=== PATIENT | female | born 1955 | race Caucasian/White ===

== ENCOUNTER 2019-01-29 14:13 | Inpatient (IN) | payer OTHER ==
[~2019-01-29] VITALS: Ht 165.1 cm; Wt 100.8 kg
[2019-01-29] MEDS ORDERED: SODIUM CHLORIDE FLUSH 10ML SYR IVF ONE (15:00)
[2019-01-29] MEDS ORDERED: CEFOTETAN PMX 2GM/50ML 50 ML IV ONE (15:00)
[2019-01-29] MEDS ORDERED: SODIUM CHLORIDE 0.9% 1,000ML IVBOLUS ONE (15:00)
--- NOTE | 2019-01-29 15:15 | NUR ---
PT TO ED FOR ABD PAIN SINCE MONDAY. VSS. IV ESTABLISHED ON AIR TALENT. LABS AND BC DRAWN. EKG COMPLETE. IV ABX AND IVF INFUSING.
[2019-01-29 15:18] LABS: BASOPHILS % (AUTO) 0 % (0-1); EOSINOPHILS % (AUTO) 0 % (1-7); LYMPHOCYTES # (AUTO) 0.29 x10^3/uL (1-3.4); LYMPHOCYTES % (AUTO) 5 % (22-44); MD NO; MEAN CORPUSCULAR HEMOGLOBIN 27.7 pg (27.0-34.8); MEAN CORPUSCULAR HGB CONC 32.9 g/dL (32.4-35.8); MEAN CORPUSCULAR VOLUME 84.4 fL (80-100); MEAN PLATELET VOLUME 8.6 fL (7.4-10.4); MONOCYTES # (AUTO) 0.23 x10^3/uL (0.2-0.8); MONOCYTES % (AUTO) 4 % (2-9); NEUTROPHILS # (AUTO) 5.74 x10^3/uL (1.8-6.8); NEUTROPHILS % (AUTO) 92 % (42-75); PLATELET COUNT 246 x10^3/uL (130-400); RED BLOOD COUNT 4.96 x10^6/uL (3.82-5.3); RED CELL DISTRIBUTION WIDTH 15.2 % (9.6-15.2)
[2019-01-29 15:26] LABS: INTERNATIONAL NORMALIZED RATIO 1.09 (0.93-1.1); PROTHROMBIN TIME 11.4 Seconds (9.6-11.5)
[2019-01-29 15:28] LABS: ALANINE AMINOTRANSFERASE 44 U/L (12-78); ALBUMIN 3.4 g/dL (3.4-5.0); ANION GAP 10 mmol/L (5-15); CALCIUM 9.1 mg/dL (8.5-10.1); CHLORIDE 93 mmol/L (98-107); CREATININE 1.09 mg/dL (0.55-1.02)
[2019-01-29 15:30] LABS: ALKALINE PHOSPHATASE 81 U/L (45-117); BILIRUBIN,TOTAL 1.4 mg/dL (0.2-1.0); TOTAL PROTEIN 8.2 g/dL (6.4-8.2)
[2019-01-29] MEDS ORDERED: LEVO200T PO (15:37)
--- NOTE | 2019-01-29 15:38 | NUR ---
PT RESTING IN ROOM. VSS. NO NEEDS EXPRESSED. AWAITING OR.
[2019-01-29] MEDS ORDERED: BUPIVACAINE/PF-EPI 0.5% 1:200K ONE (15:47)
[2019-01-29] MEDS ORDERED: FENTANYL PF 100 MCG/2ML ONE (15:50)
[2019-01-29] MEDS ORDERED: PHENYLEPHRINE 10 MG/ML ONE (16:15)
[2019-01-29] MEDS ORDERED: SCOPOLAMINE PATCH, 1.5MG PATCH.TD72 TD PRN (17:00)
[2019-01-29] MEDS ORDERED: FENTANYL PF 100 MCG/2ML IV PRN (17:00)
[2019-01-29] MEDS ORDERED: ONDANSETRON 2MG/ML, 2ML IV PRN ×2 (17:00→19:00)
[2019-01-29] MEDS ORDERED: ACETAMINOPHEN 325 MG TABLET PO PRN (17:00)
[2019-01-29] MEDS ORDERED: MIDAZOLAM 1 MG/ML, 2ML IV PRN (17:00)
[2019-01-29] MEDS ORDERED: METOPROLOL 1 MG/ML, 5ML IV PRN (17:00)
[2019-01-29] MEDS ORDERED: ALBUTEROL/IPRATROPIUM 2.5MG/0.5MG, 3 ML NPPB PRN (17:00)
[2019-01-29] MEDS ORDERED: OXYcodone 5 MG/5 ML ORAL.SOL UDC PO PRN (17:00)
[2019-01-29] MEDS ORDERED: hydrALAzine 20 MG/ML, 1ML IV PRN (17:00)
[2019-01-29] MEDS ORDERED: PROMETHAZINE 25 MG/ML, 1ML IV PRN (17:00)
[2019-01-29] MEDS ORDERED: HYDROmorphone 2 MG/ML, 1ML IVPush PRN (17:00)
[2019-01-29] MEDS ORDERED: DIAZEPAM 5 MG/ML, 2ML IVPush PRN (17:00)
[2019-01-29] MEDS ORDERED: SUCCINYLCHOLINE 20 MG/ML, 10ML ONE (17:03)
[2019-01-29] MEDS ORDERED: DEXAMETHASONE 4 MG/ML, 1ML ONE (17:03)
[2019-01-29] MEDS ORDERED: ROCURONIUM 10MG/ML,5ML ONE (17:03)
[2019-01-29] MEDS ORDERED: ONDANSETRON 2MG/ML, 2ML ONE (17:03)
[2019-01-29] MEDS ORDERED: PROPOFOL 10 MG/ML, 20ML ONE (17:03)
[2019-01-29] MEDS ORDERED: NEOSTIGMINE 1 MG/ML, 10ML ONE (17:03)
[2019-01-29] MEDS ORDERED: GLYCOPYRROLATE 0.2MG/1ML, 5ML ONE (17:03)
[2019-01-29] MEDS ORDERED: CEFAZOLIN 1,000 MG ONE (17:03)
[2019-01-29 18:30] VITALS: BP 108/65
[2019-01-29] MEDS ORDERED: HYDROcodone/APAP 5/325 TABLET PO PRN (19:00)
[2019-01-29] MEDS ORDERED: morphine SULFATE 10 MG/ML, 1ML IV PRN (19:00)
[2019-01-29] MEDS: SODIUM CHLORIDE 0.9% 1,000 ML IV SCH (19:49)
[2019-01-29] MEDS: PIPERACILLIN/TAZO/PMX 3.375GM 50 ML IV SCH (19:49)
[2019-01-29 23:35] VITALS: BP 109/65
[2019-01-30] MEDS: PIPERACILLIN/TAZO/PMX 3.375GM 50 ML IV SCH ×4 (02:22→20:12)
[2019-01-30 04:51] VITALS: BP 100/62
[2019-01-30] MEDS: SODIUM CHLORIDE 0.9% 1,000 ML IV SCH ×2 (05:04→14:00)
[2019-01-30 06:10] LABS: BASOPHILS % (AUTO) 0 % (0-1); EOSINOPHILS % (AUTO) 0 % (1-7); LYMPHOCYTES # (AUTO) 0.38 x10^3/uL (1-3.4); LYMPHOCYTES % (AUTO) 5 % (22-44); MD NO; MEAN CORPUSCULAR HEMOGLOBIN 27.7 pg (27.0-34.8); MEAN CORPUSCULAR HGB CONC 32.1 g/dL (32.4-35.8); MEAN CORPUSCULAR VOLUME 86.2 fL (80-100); MEAN PLATELET VOLUME 9.2 fL (7.4-10.4); MONOCYTES # (AUTO) 0.51 x10^3/uL (0.2-0.8); MONOCYTES % (AUTO) 7 % (2-9); NEUTROPHILS # (AUTO) 6.08 x10^3/uL (1.8-6.8); NEUTROPHILS % (AUTO) 87 % (42-75); PLATELET COUNT 181 x10^3/uL (130-400); RED BLOOD COUNT 4.06 x10^6/uL (3.82-5.3); RED CELL DISTRIBUTION WIDTH 15.1 % (9.6-15.2)
[2019-01-30 06:14] LABS: ALBUMIN 2.6 g/dL (3.4-5.0); ANION GAP 7 mmol/L (5-15); CALCIUM 8.4 mg/dL (8.5-10.1); CHLORIDE 101 mmol/L (98-107)
[2019-01-30 07:20] VITALS: BP 91/54
[2019-01-30] MEDS: ENOXAPARIN 40 MG/0.4 ML SQ SCH (09:16)
[2019-01-30 10:59] VITALS: BP 127/66
[2019-01-30] MEDS ORDERED: ACETAMINOPHEN 325 MG TABLET ONE (12:16)
[2019-01-30] MEDS ORDERED: ACETAMINOPHEN 325 MG TABLET PO PRN (12:30)
[2019-01-30 12:50] VITALS: BP 118/67
[2019-01-30] MEDS: SODIUM CHLORIDE FLUSH 10ML SYR IVF SCH (20:12)
[2019-01-30 20:23] VITALS: BP 125/71
[2019-01-31 00:54] VITALS: BP 129/77
[2019-01-31] MEDS: PIPERACILLIN/TAZO/PMX 3.375GM 50 ML IV SCH ×4 (02:03→20:32)
[2019-01-31 07:05] VITALS: BP 124/85
[2019-01-31 09:12] LABS: ANION GAP 9 mmol/L (5-15); CALCIUM 8.5 mg/dL (8.5-10.1); CHLORIDE 92 mmol/L (98-107)
[2019-01-31 09:34] LABS: BASOPHILS % (AUTO) 0 % (0-1); EOSINOPHILS # (AUTO) 0.06 x10^3/uL (0-0.4); EOSINOPHILS % (AUTO) 1 % (1-7); LYMPHOCYTES # (AUTO) 0.55 x10^3/uL (1-3.4); LYMPHOCYTES % (AUTO) 6 % (22-44); MD NO; MEAN CORPUSCULAR HEMOGLOBIN 27.9 pg (27.0-34.8); MEAN CORPUSCULAR HGB CONC 32.2 g/dL (32.4-35.8); MEAN CORPUSCULAR VOLUME 86.6 fL (80-100); MEAN PLATELET VOLUME 8.5 fL (7.4-10.4); MONOCYTES # (AUTO) 0.33 x10^3/uL (0.2-0.8); MONOCYTES % (AUTO) 4 % (2-9); NEUTROPHILS # (AUTO) 8.27 x10^3/uL (1.8-6.8); NEUTROPHILS % (AUTO) 90 % (42-75); PLATELET COUNT 229 x10^3/uL (130-400); RED CELL DISTRIBUTION WIDTH 14.4 % (9.6-15.2)
[2019-01-31] MEDS: ENOXAPARIN 40 MG/0.4 ML SQ SCH (10:05)
[2019-01-31] MEDS: SODIUM CHLORIDE FLUSH 10ML SYR IVF SCH (10:05)
[2019-01-31 13:08] LABS: HCT (SEDRATE) 35.5 % (34.6-47.8)
[2019-01-31 14:58] VITALS: BP 123/78
[2019-01-31 19:07] VITALS: BP 133/77
[2019-02-01 01:52] VITALS: BP 133/79
[2019-02-01] MEDS: SODIUM CHLORIDE FLUSH 10ML SYR IVF SCH ×3 (03:05→22:06)
[2019-02-01] MEDS: PIPERACILLIN/TAZO/PMX 3.375GM 50 ML IV SCH ×2 (03:05→08:40)
[2019-02-01 04:58] LABS: CLOSTRIDIUM DIFFICILE ANTIGEN NEGATIVE; CLOSTRIDIUM DIFFICILE TOXIN NEGATIVE (Negative)
[2019-02-01 07:40] VITALS: BP 142/82
[2019-02-01] MEDS: ENOXAPARIN 40 MG/0.4 ML SQ SCH (08:40)
[2019-02-01] MEDS: PIPERACILLIN/TAZO/PMX 4.5GM 100 ML IV SCH ×2 (14:08→22:06)
[2019-02-01 16:24] VITALS: BP 130/80
[2019-02-01 19:01] VITALS: BP 117/76
[2019-02-02 01:07] VITALS: BP 130/75
[2019-02-02] MEDS: PIPERACILLIN/TAZO/PMX 4.5GM 100 ML IV SCH (06:22)
[2019-02-02 08:49] VITALS: BP 133/91
[2019-02-02] MEDS: SODIUM CHLORIDE FLUSH 10ML SYR IVF SCH ×2 (09:30→21:02)
[2019-02-02] MEDS: ENOXAPARIN 40 MG/0.4 ML SQ SCH (10:14)
[2019-02-02 13:58] VITALS: BP 149/92
[2019-02-02] MEDS: LEVOFLOXACIN 750 MG TABLET PO SCH (13:58)
[2019-02-02] MEDS: metroNIDAZOLE 500 MG TABLET PO SCH ×2 (13:58→21:01)
[2019-02-02 21:53] VITALS: BP 142/86
[2019-02-03 01:04] VITALS: BP 147/88
[2019-02-03] MEDS: metroNIDAZOLE 500 MG TABLET PO SCH ×2 (05:05→12:29)
[2019-02-03 07:23] VITALS: BP 145/90
[2019-02-03] MEDS: ENOXAPARIN 40 MG/0.4 ML SQ SCH (08:48)
[2019-02-03] MEDS: SODIUM CHLORIDE FLUSH 10ML SYR IVF SCH (08:48)
[2019-02-03] MEDS ORDERED: LEVO750T26 PO (11:37)
[2019-02-03] MEDS ORDERED: METR500T PO (11:37)
[2019-02-03] MEDS: LEVOFLOXACIN 750 MG TABLET PO SCH (12:29)
== END 2019-02-03 12:45 | disposition home or self-care (01) | DRG 853 ==
LOC: ED 14:58 → EDIP 14:59 → ED 15:04 → 4NOR 18:25
PROVIDERS: ADMIT Surgery; ATTEND Surgery
PROC: 0WJG4ZZ Inspection of Peritoneal Cavity, Percutaneous Endoscopic Approach (ICD-10-PCS; 2019-01-29)
PROC: 0DTJ0ZZ Resection of Appendix, Open Approach (ICD-10-PCS; principal; 2019-01-29 16:00)
DX: A41.9 Sepsis, unspecified organism (principal); K35.32 Acute appendicitis with perforation, localized peritonitis, and gangrene, without abscess; E87.1 Hypo-osmolality and hyponatremia; B96.89 Other specified bacterial agents as the cause of diseases classified elsewhere; E03.9 Hypothyroidism, unspecified; E86.0 Dehydration; Z53.31 Laparoscopic surgical procedure converted to open procedure
CPT/HCPCS: 36415; 71045; 74018; 80048; 80053; 82040; 83605; 85025; 85610; 85651; 85730; 86140; 87040; 87324; 88304; 93005; 96374; 99285; G0378; J0690; J1100; J1650; J2405; J2543; J2704; J2710; J3010; J0330; J2370; J3490; J7030

== ENCOUNTER → 2019-01-29 | Outpatient (CLI) | payer OTHER ==
[~2019-01-29] MED LIST: LEVO200T PO; LEVO750T26 PO; METR500T PO; OMNIPAQUE 350 MG/ML, 100ML BOTTLE ONE
[2019-01-29 12:36] LABS: CREATININE 1.05 mg/dL (0.55-1.02)
== END | disposition home or self-care (01) ==
LOC: RAD 12:00
PROVIDERS: ATTEND Family Medicine
DX: K35.80 Unspecified acute appendicitis (principal); R11.11 Vomiting without nausea
CPT/HCPCS: 36415; 74177; 82565; Q9967